=== PATIENT | female | born 1990 | race African-American/Black ===

== ENCOUNTER 2021-02-13 15:40 | Emergency (ER) | payer OTHER ==
[2021-02-13] MEDS ORDERED: Ibuprofen 200 MG TAB ONE (16:17)
== END 2021-02-13 17:47 | disposition home or self-care (01) ==
LOC: CSHERS 15:40
DX: S80.01XA Contusion of right knee, initial encounter (principal); W19.XXXA Unspecified fall, initial encounter

== ENCOUNTER 2022-09-15 09:31 | Emergency (ER) | payer OTHER, SELFPAY ==
[2022-09-15 10:35] LABS: Bilirubin Neg (Negative); Blood, Urine Negative (Negative); Clarity Slightly Cloudy (Clear); Glucose, Urine (Dipstick) Normal (Negative); Ketone, Urine Negative (Negative); Leukocyte 500 (Negative); Nitrite Negative (Negative); Protein, Urine (Dipstick) Negative (Neg-Trace); Specific Gravity, Urine 1.005 (1.005-1.030); Urobilinogen Normal mg/dL (Less than 2)
[2022-09-15 10:38] LABS: #Eosinphils 0.2 10x3/uL (0.0-0.5); #Monocytes 0.7 10x3/uL (0.0-1.1); #Neutrophils 1.8 10x3/uL (1.5-8.4); %Basophils 0.8 % (0.0-2.0); %Eosinophils 3.9 % (0.0-6.0); %Lymphocytes 45.6 % (18.0-47.0); %Monocytes 14.4 % (0.0-10.0); %Neutrophils 35.1 % (40.0-75.0); Hemoglobin 9.5 g/dL (12.0-15.5); Mean Corpuscular HGB CONC 31.9 g/dL (32.0-36.0); Mean Corpuscular Hemoglobin 21.2 pg (27.0-33.0); Mean Corpuscular Volume 66.5 fl (81.6-98.3); Mean Platelet Volume 9.6 fl (7.4-10.4); Platelet Count 314 10x3/uL (150-450); RBC Distribution Width 18.2 % (11.5-14.5); Red Blood Cell (RBC) Count 4.48 10x6/uL (3.90-5.03); White Blood Cell (WBC) Count 5.1 10x3/uL (3.5-10.5)
[2022-09-15 10:41] LABS: Pregnancy Test - Urine (BHCG) Negative (Negative); Pregu Control Background? CLEAR/WHITE (CLR/WHITE); Pregu Control Bar Appear? YES (CONTROL BAR); Specific Gravity 1.005 (1.002-1.036)
[2022-09-15] MEDS ORDERED: Morphine 4 MG/ML VIAL ONE (10:49)
[2022-09-15] MEDS ORDERED: Ondansetron PF 4 MG/2 ML Vial ONE (10:49)
[2022-09-15 10:51] LABS: Bacteria/HPF 1+ HPF (None Seen)
[2022-09-15 10:52] LABS: Transitional Epithelial 0-3 HPF (None Seen)
[2022-09-15 10:55] LABS: ALT (SGPT) 13 U/L (8-55); AST (SGOT) 20 U/L (5-34); Albumin 4.3 g/dL (3.5-5.0); Alkaline Phosphatase 60 U/L (40-110); Anion Gap 12 mmol/L (10-20); BUN (Urea Nitrogen) 10 mg/dL (7.0-18.7); Bilirubin, Total 0.7 mg/dL (0.2-1.2); Calc. Creatinine Clearance 0 mL/min (70-130); Calcium 9.7 mg/dL (7.8-10.44); Carbon Dioxide 24 mmol/L (22-29); Chloride 105 mmol/L (98-107); Estimated GFR 113; Globulin 3.8 g/dL (2.4-3.5); Glucose 94 mg/dL (70-105); Potassium 3.8 mmol/L (3.5-5.1); Protein, Total 8.1 g/dL (6.0-8.3); Sodium 137 mmol/L (136-145)
[2022-09-15 11:02] LABS: Anisocytosis SLIGHT = 6-15 cells (100X) (0-5/hpf); Microcytosis MODERATE=15-30 cells (100X) (0-5/hpf)
[2022-09-15 11:03] LABS: Hypochromia SLIGHT = 6-15 cells (100X) (0-5/hpf); Platelet Morphology Comment Appears Adequate
[2022-09-15] MEDS ORDERED: Morphine 2 MG/ML VIAL ONE (12:18)
[2022-09-15] MEDS ORDERED: Promethazine HCl 25 MG/ML VIAL ONE (12:18)
== END 2022-09-15 16:50 | disposition home or self-care (01) ==
LOC: CSHERS 09:31
DX: N83.201 Unspecified ovarian cyst, right side (principal); L03.818 Cellulitis of other sites
CPT/HCPCS: 36415; 74177; 76856; 80053; 81003; 81015; 81025; 85025; 87070; 87086; 87205; 94760; 96365; 96375; 96376; J2270; J2405; J2550

== ENCOUNTER 2024-07-18 22:14 | Emergency (ER) | payer MEDICAID, SELFPAY ==
[2024-07-18] MEDS ORDERED: Tetracaine 0.5% PF 4 ML BOT ONE (22:31)
[2024-07-18] MEDS ORDERED: Fluorescein Opthalmic Strip ONE (22:31)
== END 2024-07-18 23:25 | disposition home or self-care (01) ==
LOC: CSHERS 22:14
DX: H57.11 Ocular pain, right eye (principal)
CPT/HCPCS: 99283

== ENCOUNTER 2024-09-03 21:03 | Emergency (ER) | payer SELFPAY ==
[2024-09-03] MEDS ORDERED: Bacitracin 1 PK ONE (22:43)
[2024-09-03] MEDS ORDERED: Boostrix 0.5 ML (Tdap) VIAL (>/=7 yrs of age) ONE (22:43)
== END 2024-09-03 23:06 | disposition home or self-care (01) ==
LOC: CSHERS 21:03
DX: S61.210A Laceration without foreign body of right index finger without damage to nail, initial encounter (principal); Z23 Encounter for immunization; W26.0XXA Contact with knife, initial encounter
CPT/HCPCS: 90471; 90715

== ENCOUNTER 2025-05-24 22:31 | Emergency (ER) | payer OTHER, SELFPAY ==
[2025-05-24] MEDS ORDERED: Ketorolac Tromethamine 30 MG (1 mL) VIAL ONE (23:10)
== END 2025-05-24 23:31 | disposition home or self-care (01) ==
LOC: CSHERS 22:31
DX: S90.122A Contusion of left lesser toe(s) without damage to nail, initial encounter (principal); W22.09XA Striking against other stationary object, initial encounter
CPT/HCPCS: 96372; 99283; J1885